=== PATIENT | female | born 1940 | race Caucasian/White ===

== ENCOUNTER 2019-05-30 05:33 | Day surgery (SDC) | payer MEDICARE, BC ==
[~2019-05-30] VITALS: Ht 167.6 cm; Wt 103.0 kg
[2019-05-30] VITALS (9 sets, daily range): BP systolic 102–136; BP diastolic 54–93; PULSE 69–82; TEMP 97.1–98.6
[~2019-05-30 05:33] MED LIST: A & D OINT TUBE60 GM TOP; AMITRIPTYLINE H25 M1 PO; ARIMIDEX1 MG PO; ASPIRIN 32325 MG/TAB PO; CENTRUM SILVER1 TAB PO; COLACE 100100 MG/CAP PO; CYMBALTA 60MG60 MG PO; FORT1000TA PO; LOPID 600M600 MG/TAB PO; MIRALAX PA17 GM/Dose PO; PRILOSEC 20MG20 MG PO; PRINIVIL10 MG PO; SEROQUEL50 MG PO
[2019-05-30] MEDS ORDERED: MAG-OX 400400 MG/TAB PO (06:50)
[2019-05-30] MEDS ORDERED: CEPHALEXIN250 M1 PO (06:59)
[2019-05-30] MEDS ORDERED: ULTRAM 50MG TAB50 MG PO (07:01)
[2019-05-30] MEDS ORDERED: NORCO 325 MG-51 TAB PO (07:02)
[2019-05-30] MEDS ORDERED: MILK OF MA400 MG/52 PO (07:03)
[2019-05-30] MEDS ORDERED: TYLENOL 325MG325 MG PO (07:04)
--- NOTE | 2019-05-30 09:00 | NUR ---
Patient has been doing well since arriving to the floor. Denies pain and nausea. She voided once already, it was blood tinged, no clots. She is wanting to go home. Explained she needs to recover a bit longer. No other changes at this time. Call light within reach.
--- NOTE | 2019-05-30 11:45 | NUR ---
Patient is discharging home. Discharge instructions discussed with patient. NO questions verbalized. INT discontinued. Explained office will call with follow up appointment. Copies of discharge instructions sent with patient. All belongings packed up. Patient walked out via wheel chair by Jeane BAIRD.
--- NOTE | 2019-05-30 12:55 | NUR ---
Initial visit; Patient and family thanked Reiki Practitioner for looking in on her, offering encouragement and prayer.
== END 2019-05-30 11:45 | disposition home or self-care (01) ==
LOC: SDCO 05:33 → JCC 08:39 → SDCO 11:45
DX: N13.2 Hydronephrosis with renal and ureteral calculous obstruction (principal); F41.9 Anxiety disorder, unspecified; F32.9 Major depressive disorder, single episode, unspecified; E11.9 Type 2 diabetes mellitus without complications; E78.5 Hyperlipidemia, unspecified; I10 Essential (primary) hypertension; I48.91 Unspecified atrial fibrillation; K21.9 Gastro-esophageal reflux disease without esophagitis; M19.90 Unspecified osteoarthritis, unspecified site; G89.29 Other chronic pain; Z85.3 Personal history of malignant neoplasm of breast; E66.9 Obesity, unspecified; Z90.13 Acquired absence of bilateral breasts and nipples; Z79.82 Long term (current) use of aspirin; Z79.84 Long term (current) use of oral hypoglycemic drugs; Z88.0 Allergy status to penicillin; Z88.8 Allergy status to other drugs, medicaments and biological substances; Z87.891 Personal history of nicotine dependence
CPT/HCPCS: OP; C1769; C2617; J7030